=== PATIENT | female | born 1985 | race Caucasian/White ===

== ENCOUNTER 2016-12-01 18:41 | Inpatient (IN) | payer MEDICAID, OTHER ==
[2016-12-01] VITALS (22 sets, daily range): BP systolic 100–160; BP diastolic 69–97; PULSE 76–96; RESP 18; TEMP 98–98.4
[~2016-12-01 18:41] MED LIST: DIPHTH/TETANUS/ACEL PERTUSSIS (BOOSTER) 0.5 ML VIAL/PFS IM ONE; MEASLES, MUMPS, RUBELLA VACCINE 0.5 ML VIAL SQ ONE; OXYC1SOL5 PO; RANI150UDC PO
--- NOTE | 2016-12-01 19:05 | PD ---
HPI Travel History International Travel<30 Days: No Contact w/Intl Traveler<30Days: No Known Affected Area: No History of Present Illness HPI This patient is a 31-year-old 2 para 1001 EDC is December 06, 2016 presently at 39 weeks and 1 day she presents with chief complaint of onset of contractions at 6 PM No rupture of membranes no vaginal bleeding the baby is active positive bloody show Patient was scheduled for an induction tomorrow morning at 8:00 Her course as been with Dr. Colin group significant for positive group B strep she does desire an epidural History Past Medical History Narrative Medical No known drug allergies no major medical problems Obstetric History Obstetric History Vaginal delivery 1 6-1/2 pounds uncomplicated Past Surgical History Narrative Surgical Breast augmentation Family History Family History: Negative Social History Alcohol Use: No Tobacco Use: No Substance Abuse: No Allergies-Medications (Allergen,Severity, Reaction): Coded Allergies: No Known Allergies (Unverified , 07/07/13) Home Meds Active Scripts Oxycodone W/ Acetaminophen (Oxycodone/Acetaminophen 5-325 mg/5Ml)1 Tab Tab1 Tab PO Q4H PRN (PAIN SCALE 1 TO 4) #20 TAB Prov:Rajinder Colin MD 05/15/15 Ranitidine Hcl (Zantac)150 Mg/10 Ml [id number] Mg PO BID 7 Days Prov:Carli Cancino MD 07/07/13 Review of Systems Gastrointestinal: Abdominal Pain (contractions as per history of present illness) Genitourinary: Vaginal Bleeding (bloody show) Physical Exam Narrative GENERAL: Well-nourished, well-developed patient. In moderate distress secondary to uterine contractions alert oriented 3 SKIN: Warm and dry. HEAD: Normocephalic and atraumatic. EYES: No scleral icterus. No injection or drainage. Conjunctiva are pink ENT: No nasal drainage noted. Mucous membranes pink. Airway patent. NECK: Supple, trachea midline. No JVD. CARDIOVASCULAR: Regular rate and rhythm without murmurs, gallops, or rubs. RESPIRATORY: Breath sounds equal bilaterally. No accessory muscle use. ABDOMEN/GI: Gravid consistent with term gestation estimated weight of 7 pounds Gravid to [-] weeks size term Fundal Height: [-] GENITOURINARY: External Genitalia: intact and normal in appearance BUS glands: [-] Cervix: [-] Midline Dilatation: [-] 8 cm Effacement: [-] 100% Station: [-] +1 station Presentation: [-] Vertex Membranes: [intact Uterine Contractions: [-] Irregular FHT's: Category: [-] 1 Baseline: [-] 140 Reactive: [-] + Variability: [-] Moderate Decels: [-] 0 EXTREMITIES: No cyanosis or edema. 2+ NEUROLOGICAL: Awake and alert. Motor and sensory grossly within normal limits. Five out of 5 muscle strength in all muscle groups. Normal speech. Data Data Vital Signs Reviewed: Yes MDM Interpretation(s) 31-year-old 3 para 1 at term Active labor Group B strep positive Plan Admit IV fluid hydration External monitoring CBC type and screen Epidural Penicillin for group B strep coverage Dr. Puga has been notified Physician Communication Spoke with Dr. Funes she is in route to the hospital Carli Ware MD Dec 01, 2016 19:05
[2016-12-01] MEDS ORDERED: LACTATED RINGER'S 1000 ML INJ 1,000 ML IV PRN (19:07)
--- NOTE | 2016-12-01 19:09 | HHI.HP ---
History & Physical H&P HPI HPI Travel History International Travel<30 Days: No Contact w/Intl Traveler<30Days: No Known Affected Area: No History of Present Illness HPI This patient is a 31-year-old 2 para 1001 EDC is December 06, 2016 presently at 39 weeks and 1 day she presents with chief complaint of onset of contractions at 6 PM No rupture of membranes no vaginal bleeding the baby is active positive bloody show Patient was scheduled for an induction tomorrow morning at 8:00 Her course as been with Dr. Colin group significant for positive group B strep she does desire an epidural History (Limited) History Past Medical History Narrative Medical No known drug allergies no major medical problems Obstetric History Obstetric History Vaginal delivery 1 6-1/2 pounds uncomplicated Past Surgical History Narrative Surgical Breast augmentation Family History Family History: Negative Social History Alcohol Use: No Tobacco Use: No Substance Abuse: No Allergies-Medications Allergies-Medications (Allergen,Severity, Reaction): Coded Allergies: No Known Allergies (Unverified , 07/07/13) Home Meds Active Scripts Oxycodone W/ Acetaminophen (Oxycodone/Acetaminophen 5-325 mg/5Ml)1 Tab Tab1 Tab PO Q4H PRN (PAIN SCALE 1 TO 4) #20 TAB Prov:Rajinder Colin MD 05/15/15 Ranitidine Hcl (Zantac)150 Mg/10 Ml [id number] Mg PO BID 7 Days Prov:Carli Cancino MD 07/07/13 ROS Review of Systems Gastrointestinal: Abdominal Pain (contractions as per history of present illness) Genitourinary: Vaginal Bleeding (bloody show) Physical Exam Physical Exam Narrative GENERAL: Well-nourished, well-developed patient. In moderate distress secondary to uterine contractions alert oriented 3 SKIN: Warm and dry. HEAD: Normocephalic and atraumatic. EYES: No scleral icterus. No injection or drainage. Conjunctiva are pink ENT: No nasal drainage noted. Mucous membranes pink. Airway patent. NECK: Supple, trachea midline. No JVD. CARDIOVASCULAR: Regular rate and rhythm without murmurs, gallops, or rubs. RESPIRATORY: Breath sounds equal bilaterally. No accessory muscle use. ABDOMEN/GI: Gravid consistent with term gestation estimated weight of 7 pounds Gravid to [-] weeks size term Fundal Height: [-] GENITOURINARY: External Genitalia: intact and normal in appearance BUS glands: [-] Cervix: [-] Midline Dilatation: [-] 8 cm Effacement: [-] 100% Station: [-] +1 station Presentation: [-] Vertex Membranes: [intact Uterine Contractions: [-] Irregular FHT's: Category: [-] 1 Baseline: [-] 140 Reactive: [-] + Variability: [-] Moderate Decels: [-] 0 EXTREMITIES: No cyanosis or edema. 2+ NEUROLOGICAL: Awake and alert. Motor and sensory grossly within normal limits. Five out of 5 muscle strength in all muscle groups. Normal speech. Data Data Data Vital Signs Reviewed: Yes MDM MDM Interpretation(s) 31-year-old 3 para 1 at term Active labor Group B strep positive Plan Admit IV fluid hydration External monitoring CBC type and screen Epidural Penicillin for group B strep coverage Dr. Puga has been notified Physician Communication Spoke with Dr. Funes she is in route to the hospital Carli Ware MD Dec 01, 2016 19:09
[2016-12-01] MEDS ORDERED: LIDOCAINE HCL 1% 50 ML VIAL I-DERMAL PRN (19:15)
[2016-12-01] MEDS ORDERED: SODIUM CHLORID 0.9% 500 ML INJ 500 ML IV PRN (19:15)
[2016-12-01] MEDS ORDERED: PENICILLIN G POTASSIUM INJ 5,000,000 UNITS in SODIUM CHLORIDE 0.9% INJ 100 ML IV ONE (19:15)
[2016-12-01] MEDS ORDERED: ONDANSETRON HCL 4 MG/2 ML VIAL IV PRN (19:15)
[2016-12-01] MEDS ORDERED: LIDOCAINE HCL 1% 50 ML VIAL INFIL PRN (19:15)
[2016-12-01] MEDS ORDERED: CITRIC ACID-SODIUM CITRATE LIQ 30 ML UDC PO SCH (19:15)
[2016-12-01] MEDS ORDERED: OXYTOCIN 30 UNITS-500ML PREMIX 500 ML IV ONE (19:15)
[2016-12-01] MEDS: LACTATED RINGER'S 1000 ML INJ 1,000 ML IV SCH (19:18)
[2016-12-01] MEDS ORDERED: fentaNYL 2MCG-BUPIV 0.125% INJ 100 ML ONE (19:26)
[2016-12-01] MEDS ORDERED: SODIUM CHLOR 0.9% 1000 ML INJ 1,000 ML IV PRN (19:27)
[2016-12-01 19:31] LABS: AUTOMATED NEUTROPHIL # 6.1 TH/MM3 (1.8-7.7); BASOPHIL % 0.3 % (0.0-2.0); EOSINOPHIL # 0.1 TH/MM3 (0-0.4); EOSINOPHIL % 0.5 % (0.0-4.0); HEMO FLAGS DIFF FINAL; LYMPH % 26.3 % (9.0-44.0); LYMPHOCYTE # 2.6 TH/MM3 (1.0-4.8); MEAN CELL VOLUME 95.5 FL (80.0-100.0); MEAN CORPUSCULAR HEMOGLOBIN 31.8 PG (27.0-34.0); MEAN CORPUSCULAR HGB CONC 33.3 % (32.0-36.0); MONO % 11.1 % (0.0-8.0); NEUT % 61.8 % (16.0-70.0); PLATELET COUNT 187 TH/MM3 (150-450); RED BLOOD COUNT 4.29 MIL/MM3 (4.00-5.30); WHITE BLOOD COUNT 9.8 TH/MM3 (4.0-11.0)
[2016-12-01] MEDS ORDERED: DO NOT ADMINISTER ANTICOAGULANTS PRN (20:45)
[2016-12-01] MEDS ORDERED: NO SYSTEM NARCOTICS PRN (20:45)
[2016-12-01] MEDS ORDERED: ePHEDrine/NS 25 MG/5 ML SYR IV PRN (20:45)
[2016-12-01] MEDS ORDERED: fentaNYL 2MCG-BUPIV 0.125% 100 ML EPIDURAL SCH (20:45)
[2016-12-01] MEDS: MINERAL OIL 10 ML VIAL TOPICAL PRN ×2 (21:35→21:36)
--- NOTE | 2016-12-01 21:53 | PD.OB.DELI ---
Delivery Date: Dec 01, 2016 Anesthesia: Epidural Episiotomy: None Vaginal Delivery: Normal, Spontaneous Presentation: Occiput anterior Nuchal Cord: None Delayed cord clamping (45 sec): No : Male, Single Placenta: Spontaneous delivery, Intact, 3 vessel cord Laceration: No lacerations Meghann Puga MD Dec 01, 2016 21:53
[2016-12-01] MEDS ORDERED: BENZOCAINE 20% TOPICAL SPRAY 60 ML CAN TOPICAL PRN (22:00)
[2016-12-01] MEDS ORDERED: WITCH HAZEL 50%/GLYCERIN 12.5% 40 PAD JAR TOPICAL PRN (22:00)
[2016-12-01] MEDS ORDERED: SODIUM CHLORIDE 0.9% FLUSH 10 ML FLUSH IV FLUSH PRN (22:00)
[2016-12-01] MEDS ORDERED: IBUPROFEN 600 MG TAB PO PRN (22:00)
[2016-12-01] MEDS ORDERED: ALUMINUM/MAGNESIUM/SIMETH 30 ML CUP PO PRN (22:00)
[2016-12-01] MEDS ORDERED: oxyCODONE/ACETAMINOPHEN 5 MG/325 MG TAB PO PRN ×2 (22:00)
[2016-12-01] MEDS ORDERED: ZOLPIDEM TARTRATE 5 MG TAB PO PRN (22:00)
[2016-12-01] MEDS ORDERED: ONDANSETRON ODT 4 MG TAB PO PRN (22:00)
[2016-12-01] MEDS ORDERED: DOCUSATE SODIUM 50 MG/SENNA 8.6 MG TAB PO PRN (22:00)
[2016-12-01] MEDS ORDERED: ACETAMINOPHEN 325 MG TAB PO PRN (22:00)
[2016-12-02 08:00] VITALS: BP 137/82; PULSE 66; RESP 18; TEMP 97.8
[2016-12-02] MEDS ORDERED: SODIUM CHLORIDE 0.9% FLUSH 10 ML FLUSH IV FLUSH SCH (09:00)
[2016-12-02 16:00] VITALS: BP 128/84; PULSE 68; RESP 16; TEMP 97.9
--- NOTE | 2016-12-02 16:08 | HHI.OB ---
Subjective Post Day: 1 Remarks doing well Objective Vitals/I&O Vital Signs Date Time Temp Pulse Resp B/P Pulse Ox O2 Delivery O2 Flow Rate FiO2 12/02/16 08:00 137/82 12/02/16 08:00 97.8 66 18 12/01/16 22:31 94 153/86 12/01/16 22:19 18 12/01/16 22:00 85 148/85 12/01/16 22:00 98.4 18 12/01/16 21:59 92 100/69 12/01/16 20:30 78 142/82 12/01/16 20:16 76 141/83 12/01/16 20:13 98.0 12/01/16 20:10 80 12/01/16 20:05 88 12/01/16 20:01 90 160/93 12/01/16 20:00 81 12/01/16 19:55 77 12/01/16 19:51 84 140/89 12/01/16 19:50 86 12/01/16 19:46 79 145/86 12/01/16 19:45 90 12/01/16 19:40 85 148/97 12/01/16 19:40 96 12/01/16 19:37 85 146/91 12/01/16 19:35 89 12/01/16 19:15 80 154/90 12/01/16 19:07 85 146/89 12/01/16 19:00 18 Objective Remarks GENERAL: Well-nourished, well-developed patient. ABDOMEN/GI: Abdomen soft, non-tender. Fundus: Firm, non-tender at umbilicus. GENITOURINARY: Light to moderate bleeding. EXTREMITIES: No cyanosis or edema, non-tender, without signs of DVT. Medications and IVs Current Medications Medications (Trade) Dose Ordered Sig/Noa Route Start Time Stop Time Status Last Admin Lactated Ringer's 1,000 ml @ 125 mls/hr Q8H IV 12/01/16 19:07 12/01/16 19:18 Lactated Ringer's 1,000 ml @ 3,000 mls/hr Q20M PRN IV 12/01/16 19:07 Sodium Chloride 500 ml @ 1,000 mls/hr ONCE PRN IV 12/01/16 19:15 12/02/16 19:14 (NS 1000 ml Inj) 1,000 ml @ 100 mls/hr Q10H PRN IV 12/01/16 19:27 (Zofran Inj) 4 mg Q6H PRN IV 12/01/16 19:15 (fentaNYL INJ) 50 mcg Q1H PRN IV PUSH 12/01/16 19:15 Fentanyl Citrate 100 mcg 100 mcg Q1H PRN IV PUSH 12/01/16 19:15 (Pfizerpen-G Inj/ NS Inj) 100 ml @ 200 mls/hr Q4H IV 12/01/16 23:15 (Muri-Lube Oil) 10 ml UNSCH PRN TOPICAL 12/01/16 19:15 12/01/16 21:36 Miscellaneous Information No systemic narcotics to be given except... UNSCH PRN .XX 12/01/16 20:45 12/02/16 20:44 Miscellaneous Information DO NOT ADMINISTER ANY ANTICOAGUL... UNSCH PRN .XX 12/01/16 20:45 12/02/16 20:44 (fentaNYL 2MCG-BUPIV 0.125% INJ) 100 ml @ 0 mls/hr TITRATE EPIDURAL 12/01/16 20:45 12/01/16 22:16 (ePHEDrine/NS 25 MG/5 ML SYR) 10 mg UNSCH PRN IV 12/01/16 20:45 12/02/16 20:44 (NS Flush) 2 ml BID IV FLUSH 12/02/16 09:00 (NS Flush) 2 ml UNSCH PRN IV FLUSH 12/01/16 22:00 (Tylenol) 650 mg Q4H PRN PO 12/01/16 22:00 (Motrin) 600 mg Q6H PRN PO 12/01/16 22:00 (Percocet 5-325 Mg) 1 tab Q4H PRN PO 12/01/16 22:00 (Percocet 5-325 Mg) 2 tab Q4H PRN PO 12/01/16 22:00 (Americaine 20% Top Spr) 1 spray Q4H PRN TOPICAL 12/01/16 22:00 12/02/16 03:37 (Tucks Pads) 1 applic QID PRN TOPICAL 12/01/16 22:00 (Dorcas-Colace) 2 tab Q12H PRN PO 12/01/16 22:00 (Ambien) 5 mg HS PRN PO 12/01/16 22:00 (Mag-Al Plus Susp Liq) 15 ml Q8H PRN PO 12/01/16 22:00 (Zofran Odt) 4 mg Q6H PRN PO 12/01/16 22:00 Assessment/Plan Problem List: (1) Spontaneous vaginal delivery Discharge Planning dc in 48 hours Rajinder Colin MD Dec 02, 2016 16:07
--- NOTE | 2016-12-03 06:54 | HHI.DCPOC ---
Discharge Care Plan Diagnosis: (1) Spontaneous vaginal delivery Report Symptoms to Your Doctor -Temperate above 100.5 degrees -Redness, of incision or excessive or foul smelling drainage -Unusual pain or calf pain -Increased vaginal bleeding -Painful or difficulty urinating -Feelings of extreme sadness or anxiety after 2 weeks Goals to Promote Your Health * To prevent worsening of your condition and complications * To maintain your health at the optimal level Directions to Meet Your Goals Take your medications as prescribed Follow your dietary instruction Follow activity as directed Ensure plenty of rest for recovery Drink fluids for hydration Keep your appointments as scheduled Take your immunizations and boosters as scheduled If your symptoms worsen call your PCP, if no PCP go to Urgent Care Center or Emergency Room Smoking is Dangerous to Your Health. Avoid second hand smoke Call the 24-hour crisis hotline for domestic abuse at Rajinder Colin MD Dec 03, 2016 06:54
[2016-12-03] MEDS: PENICILLIN G POTASSIUM INJ 2,500,000 UNITS in SODIUM CHLORIDE 0.9% INJ 100 ML IV SCH ×2 (07:15→11:15)
--- NOTE | 2016-12-03 08:11 | HHI.OB ---
Subjective Post Day: 2 Remarks doing well for dc home Objective Vitals/I&O Vital Signs Date Time Temp Pulse Resp B/P Pulse Ox O2 Delivery O2 Flow Rate FiO2 12/02/16 16:00 68 128/84 12/02/16 16:00 97.9 16 Objective Remarks GENERAL: Well-nourished, well-developed patient. ABDOMEN/GI: Abdomen soft, non-tender. Fundus: Firm, non-tender at umbilicus. GENITOURINARY: Light to moderate bleeding. EXTREMITIES: No cyanosis or edema, non-tender, without signs of DVT. Medications and IVs Current Medications Medications (Trade) Dose Ordered Sig/Noa Route Start Time Stop Time Status Last Admin Lactated Ringer's 1,000 ml @ 125 mls/hr Q8H IV 12/01/16 19:07 12/01/16 19:18 Lactated Ringer's 1,000 ml @ 3,000 mls/hr Q20M PRN IV 12/01/16 19:07 (NS 1000 ml Inj) 1,000 ml @ 100 mls/hr Q10H PRN IV 12/01/16 19:27 (Zofran Inj) 4 mg Q6H PRN IV 12/01/16 19:15 (fentaNYL INJ) 50 mcg Q1H PRN IV PUSH 12/01/16 19:15 Fentanyl Citrate 100 mcg 100 mcg Q1H PRN IV PUSH 12/01/16 19:15 (Pfizerpen-G Inj/ NS Inj) 100 ml @ 200 mls/hr Q4H IV 12/01/16 23:15 Mineral Oil 10 ml 10 ml UNSCH PRN TOPICAL 12/01/16 19:15 12/01/16 21:36 (fentaNYL 2MCG-BUPIV 0.125% INJ) 100 ml @ 0 mls/hr TITRATE EPIDURAL 12/01/16 20:45 12/01/16 22:16 (NS Flush) 2 ml BID IV FLUSH 12/02/16 09:00 (NS Flush) 2 ml UNSCH PRN IV FLUSH 12/01/16 22:00 (Tylenol) 650 mg Q4H PRN PO 12/01/16 22:00 (Motrin) 600 mg Q6H PRN PO 12/01/16 22:00 (Percocet 5-325 Mg) 1 tab Q4H PRN PO 12/01/16 22:00 (Percocet 5-325 Mg) 2 tab Q4H PRN PO 12/01/16 22:00 (Americaine 20% Top Spr) 1 spray Q4H PRN TOPICAL 12/01/16 22:00 12/02/16 03:37 (Tucks Pads) 1 applic QID PRN TOPICAL 12/01/16 22:00 (Dorcas-Colace) 2 tab Q12H PRN PO 12/01/16 22:00 (Ambien) 5 mg HS PRN PO 12/01/16 22:00 (Mag-Al Plus Susp Liq) 15 ml Q8H PRN PO 12/01/16 22:00 (Zofran Odt) 4 mg Q6H PRN PO 12/01/16 22:00 Assessment/Plan Problem List: (1) Spontaneous vaginal delivery Discharge Planning dc Rajinder Sultana MD Dec 03, 2016 08:11
[2016-12-03] MEDS ORDERED: OXYC1TAB63 PO (08:12)
[2016-12-03 08:35] VITALS: BP 125/91; PULSE 60; RESP 16; TEMP 97.9
[2016-12-03] MEDS: LACTATED RINGER'S 1000 ML INJ 1,000 ML IV SCH (09:05)
== END 2016-12-03 15:11 | disposition home or self-care (01) | DRG 775 ==
LOC: HOBED 18:41 → H2EB 19:15 → H1EA 23:38
PROVIDERS: ADMIT Obstetrics & Gynecology; ATTEND Obstetrics & Gynecology
PROC: 10E0XZZ Delivery of Products of Conception, External Approach (ICD-10-PCS; principal; 2016-12-01)
PROC: 00HU33Z Insertion of Infusion Device into Spinal Canal, Percutaneous Approach (ICD-10-PCS; 2016-12-01)
PROC: 3E0R3CZ (ICD-10-PCS; 2016-12-01)
DX: O99.824 Streptococcus B carrier state complicating childbirth (principal); Z37.0 Single live birth; Z3A.39 39 weeks gestation of pregnancy
CPT/HCPCS: 85025; 86900; 86901; 99285; J2540; J2590; J7120